=== PATIENT | male | born 1990 | race Hispanic/Latino ===

== ENCOUNTER 2016-08-15 08:33 | Emergency (ER) | payer OTHER ==
[~2016-08-15] VITALS: Ht 170.2 cm; Wt 59.1 kg
[~2016-08-15 08:33] MED LIST: CIPR-231 PO; HYDR-4003 PO; IBUP200T48 PO; IBUP800T28 PO; METR500T PO; TAMS0.4C98 PO
[2016-08-15 08:38] VITALS: BP 120/71; PULSE 97; RESP 20; O2SAT 95
[2016-08-15 09:11] LABS: BASOPHILS % (AUTO) 0.3 % (0-3); EOSINOPHILS % (AUTO) 0.2 % (0-5); MONOCYTES % (AUTO) 10.2 % (4-12); Mean Corpuscular Volume 88.4 fL (81-100); NEUTROPHILS % (AUTO) 76.1 % (40-74); Platelet Count 183 bil/L (150-400)
--- NOTE | 2016-08-15 09:19 | ED.REPORT ---
HPI-Abd Pain M Under 40 Date of Service Aug 15, 2016 ED Provider: Mac Manzanares MD Patient is a 25 year old male who presents to the ED complaining of LUQ, aching abdominal pain onset last night. His pain is worse when he lays on his side. Associated symptoms include diarrhea x2 and nausea. He reports that he tried to vomit to make himself feel better but it was just "yellow acid" because he can' t eat. He denies fever, hematochezia, or any other symptoms. He has had similar symptoms previously. Nursing Notes Stated Complaint: PAIN IN ABDOMEN Chief Complaint: Male Abdominal Pain Nursing Notes Reviewed: Yes Allergies: Coded Allergies: No Known Allergies (Verified Allergy, Unknown, 08/15/16) Scheduled Ciprofloxacin (Cipro) 500 Mg Tablet 500 MG PO BID IBUPROFEN-Expunged Drug, Do Not Renew! (IBUPROFEN-Expunged Drug, Do Not Renew!) 200 Mg Tablet 200 MG PO PRN Metronidazole (Flagyl) 500 Mg Tablet 500 MG PO Q8H Tamsulosin (Flomax) 0.4 Mg Capsule 0.4 MG PO DAILY Scheduled PRN Hydrocodone-Acetaminophen 5-325 mg (Hydrocodone-Acetaminophen 5-325 mg) 1 Each Tablet 1 TABLET PO Q4H PRN PRN For Pain Ibuprofen (Ibuprofen) 800 Mg Tablet 800 MG PO TID PRN PRN For Pain Ondansetron ODT (Zofran ODT) 4 Mg Tablet 4 MG PO Q4H PRN PRN For Nausea General Time Seen by MD: 09:12 Chief Complaint Abdominal pain Hx Obtained From: Patient Arrived By: Walk-in Sudden in Onset?: Yes Onset Occurred: Yesterday Symptom Duration: Since onset Similar Sx Previous: Yes Past Medical History Past Medical History Hx of kidney stones Anxiety Hiatal hernia Past Surgical History Kidney stone removal Family History noncontributory Smoking History Never Smoker Social History Alcohol Use: "Social" Drug Use: THC Other Social History: Local resident Occupation [employer], lives with girlfriend and kids Ambulatory Status Independent Review of Systems Constitutional: Denies: Fever GI: Reports: Abdominal pain, Diarrhea, Nausea, Denies: Hematochezia Complete sys rev & neg: except as marked. Physical Exam Initial Vital Signs Vital Signs (First) Date Time Temp Pulse Resp B/P Pulse Ox O2 Delivery O2 Flow Rate FiO2 08/15/16 08:38 36.9 97 20 120/71 95 Room Air Initial VS: Reviewed Head / Eyes: Atraumatic, Normocephalic Neck: Full range of motion Skin: Warm, Dry Neurologic: Alert, Oriented, Nonfocal Psychiatric: Mood/affect normal, Behavior normal, Normal thought content General/Constitutional: Awake, Alert, Well appearing Respiratory / Chest: Breath sounds NL, Breath sounds = bilat, No respiratory distress Cardiovascular: Heart rate NL, Regular rhythm, Heart sounds NL, No gallop, No murmurs, No rubs Abdomen: No guarding, No rebound, BS normoactive Tenderness/Guarding/Rebound: Positive: Tender LUQ... Back: Inspection NL Interpretation & Diagnostics Lab Results Interpretation Result Diagram: 08/15/16 0900 08/15/16 0900 Test 08/15/16 09:00 08/15/16 10:30 White Blood Count 9.6th/mm3 (3.8-10.1) Red Blood Count 4.58mil/mm3 (4.40-5.80) Hemoglobin 14.2g/dL (13.8-17.2) Hematocrit 40.5% (41.0-50.0) Mean Corpuscular Volume 88.4fL (81-100) Mean Corpuscular Hemoglobin 31.0pg (27.0-35.0) Mean Corpuscular Hemoglobin Concent 35.1% (32.0-37.0) Red Cell Distribution Width 12.3% (12.3-15.4) Platelet Count 183bil/L (150-400) Neutrophils (%) (Auto) 76.1% (40-74) Lymphocytes (%) (Auto) 13.0% (14-46) Monocytes (%) (Auto) 10.2% (4-12) Eosinophils (%) (Auto) 0.2% (0-5) Basophils (%) (Auto) 0.3% (0-3) Sodium Level 138mEq/L (134-144) Potassium Level 4.1mEq/L (3.5-5.2) Chloride Level 100mEq/L (97-108) Carbon Dioxide Level 21mmol/L (18-29) Blood Urea Nitrogen 17mg/dL (6-20) Creatinine 0.73mg/dL (0.76-1.27) Estimat Glomerular Filtration Rate 138mL/min (>59) Glucose Level 99mg/dL (60-99) Calcium Level 9.3mg/dL (8.5-10.1) Magnesium Level 1.8mg/dL (1.6-2.6) Total Bilirubin 0.3mg/dL (0.0-1.2) Aspartate Amino Transf (AST/SGOT) 21U/L (0-50) Alanine Aminotransferase (ALT/SGPT) 12U/L (0-44) Alkaline Phosphatase 66U/L (25-150) Total Protein 7.0g/dL (6.4-8.4) Albumin 4.7g/dL (3.4-5.0) Lipase 33U/L (13-60) Hold Hoffmann Top Tube Received (Received) Urine Color Yellow (YELLOW) Urine Appearance Clear (CLEAR,HAZY) Urine pH 7.0 (5.0-8.0) Urine Specific [place] 1.015 (1.003-1.035) Urine Protein Negativemg/dL (NEG,TRACE) Urine Glucose (UA) Negativemg/dL (NEGATIVE) Urine Ketones 80mg/dL (NEGATIVE) Urine Occult Blood Moderate (NEGATIVE) Urine Nitrite Negative (NEGATIVE) Urine Bilirubin Negative (NEGATIVE) Urine Urobilinogen Normalmg/dL (NORMAL) Urine Leukocyte Esterase Negative (NEGATIVE) Urine RBC 11-50/hpf (0-2) Urine WBC 0-5/hpf (0-5) Urine Epithelial Cells Occasional/hpf (NONE-MOD) Urine Crystals None seen (NONE SEEN) Urine Bacteria None/hpf (NONE-FEW) Urine Hyaline Casts None/lpf (NONE) Urine Granular Casts None seen (NONE SEEN) Urine Waxy Casts None seen (NONE SEEN) Urine Red Blood Cell Casts None seen (NONE SEEN) Urine White Blood Cell Casts None seen (NONE SEEN) Urine Mucus None seen (None Seen) Urine Trichomonas None seen (NONE SEEN) Urine Yeast None (NONE SEEN) Urinalysis Comment None Urine Culture Reflexed Not indicated Re-Eval/Medical Decision Re-Evaluation/Progress : Time of Eval: 13:03 )( Re-Eval Abdomen: Soft Re-Evaluation/Progress Note: Rechecked patient who reports feeling better. Discussed lab results and plan for discharge. Patient understands and agrees with plan. All questions addressed at this time. Counseled Regarding: Diagnosis, Lab results, Need for follow-up, When/why to return to ED Patient Discharge & Departure Primary Impression: Generalized abdominal pain Additional Impressions: Cannabinoid hyperemesis syndrome Hematuria, microscopic Disposition: Home Discharge Condition All VS Reviewed: Yes Condition: Improved Additional Instructions: In the emergency department today we perform a review reviewed past records, did labs gave, IV fluids and nausea and pain medications. No serious cause for abdominal pain is identified. We note that there is some blood seen in urine, this was present on last visit and on last visit CT of abdomen and pelvis did not show ureteral stone to explain symptoms. There were some very tiny stones in the kidneys, if these were moving towards her bladder they will pass spontaneously. Episodic abdominal pain associated with nausea and vomiting is characteristic of a condition known as cannabis hyperemesis syndrome. This occurs in people who use marijuana chronically. The only way to prevent these episodes from happening is to stop using cannabis, you may need to abstain for a month or more to obtain relief from symptoms. Follow up with urology for reevaluation of blood and urine and establish primary care. May use ondansetron as needed for nausea and vomiting, return to emergency department for fevers, severe abdominal pain uncontrolled vomiting. Referrals: [facility] Scribe Attestation Portions of this note were transcribed by Sailaja Rock. I, Dr. Manzanares personally performed the history, physical exam and medical decision-making; I reviewed and confirmed the accuracy of the information in the transcribed note. Signed by: Sailaja Rock 08/15/16, 1312 copies to: [facility] Mac Manzanares MD Aug 15, 2016 09:19 SAILAJA ROCK Aug 15, 2016 09:39
[2016-08-15] MEDS ORDERED: 0.9% Sodium Chloride 1,000 ML IV ONE (09:35)
[2016-08-15] MEDS ORDERED: Haloperidol 5 mg/mL Inj IVPUSH ONE (09:35)
[2016-08-15 09:50] LABS: Magnesium 1.8 mg/dL (1.6-2.6)
[2016-08-15 11:22] LABS: APPEARANCE,URINE CLEAR (CLEAR,HAZY); COLOR,URINE YELLOW (YELLOW); OCCULT BLOOD,URINE MODERATE (NEGATIVE)
[2016-08-15 11:23] LABS: UROBILINOGEN,URINE NORMAL (NORMAL)
[2016-08-15 13:04] VITALS: BP 108/56; PULSE 90; RESP 16; O2SAT 98
[2016-08-15] MEDS ORDERED: ONDA4TAB9 PO (13:10)
[2016-08-15 13:19] VITALS: BP 108/56; PULSE 90; RESP 16; O2SAT 98
== END 2016-08-15 13:18 | disposition home or self-care (01) ==
LOC: SED 08:33
DX: R10.84 Generalized abdominal pain (principal); F12.288 Cannabis dependence with other cannabis-induced disorder; R11.10 Vomiting, unspecified; R31.29 Other microscopic hematuria; R19.7 Diarrhea, unspecified; R11.0 Nausea
CPT/HCPCS: 36415; 80053; 81000; 83690; 83735; 85025; 96361; 96374; 96375; 99285; J1200; J1630; J7030